=== PATIENT | male | born 2000 | race Caucasian/White ===

== ENCOUNTER 2020-01-18 11:31 | Emergency (ER) | payer OTHER ==
[~2020-01-18] VITALS: Ht 185.4 cm; Wt 67.4 kg
[2020-01-18] MEDS ORDERED: ACETAMINOPHEN 500 MG TAB PO ONE (12:15)
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
[2020-01-18 13:21] VITALS: BP 117/74
== END 2020-01-18 13:23 | disposition home or self-care (01) ==
LOC: M ED 11:31
DX: S09.90XA Unspecified injury of head, initial encounter (principal); S20.319A Abrasion of unspecified front wall of thorax, initial encounter; V49.50XA Passenger injured in collision with unspecified motor vehicles in traffic accident, initial encounter; Y92.410 Unspecified street and highway as the place of occurrence of the external cause

== ENCOUNTER 2020-07-31 01:14 | Inpatient (IN) | payer OTHER ==
[~2020-07-31] VITALS: Ht 184.2 cm; Wt 70.5 kg
[2020-07-31 02:02] LABS: HEMATOCRIT 42.8 % (42.0-52.0); HEMOGLOBIN 14.9 g/dl (13.5-17.5); MEAN CORPUSCULAR HEMOGLOBIN 30.3 pg (27.0-33.0); MEAN CORPUSCULAR HGB CONC 34.8 g/dl (32.0-36.5); MEAN CORPUSCULAR VOLUME 87.2 fl (80.0-96.0); PLATELET COUNT, AUTOMATED 246 10^3/uL (150-450); RED BLOOD COUNT 4.91 10^6/uL (4.30-6.10); WHITE BLOOD COUNT 9.2 10^3/uL (4.0-10.0)
[2020-07-31 02:27] LABS: AMPHETAMINES LEVEL URINE NEGATIVE (NEGATIVE); BARBITURATES URINE NEGATIVE (NEGATIVE); BENZODIAZEPINES URINE NEGATIVE (NEGATIVE); CANNABINOIDS URINE NEGATIVE (NEGATIVE); COCAINE METABOLITE URINE NEGATIVE (NEGATIVE); METHADONE URINE NEGATIVE (NEGATIVE); OPIATES URINE NEGATIVE (NEGATIVE); PHENCYCLIDINE URINE NEGATIVE (NEGATIVE)
[2020-07-31 02:38] LABS: ACETAMINOPHEN LEVEL < 2.0 UG/ML (10.0-30.0); ALBUMIN 4.4 GM/DL (3.2-5.2); ALT/SGPT 27 U/L (12-78); BILIRUBIN,DIRECT < 0.1 MG/DL (0.0-0.2); BILIRUBIN,TOTAL 0.3 MG/DL (0.2-1.0); BLOOD UREA NITROGEN 12 MG/DL (7-18); CALCIUM LEVEL 9.2 MG/DL (8.5-10.1); CARBON DIOXIDE LEVEL 31 MEQ/L (21-32); CHLORIDE LEVEL 105 MEQ/L (98-107); CREATININE FOR GFR 0.85 MG/DL (0.70-1.30); ETHYL ALCOHOL (ETHANOL) < 0.003 % (0.000-0.010); GLOMERULAR FILTRATION RATE > 60.0 (>60); GLUCOSE, FASTING 101 MG/DL (70-100); POTASSIUM SERUM 3.8 MEQ/L (3.5-5.1); SALICYLATE LEVEL < 1.7 MG/DL (5.0-30.0); SODIUM LEVEL 141 MEQ/L (136-145); TOTAL PROTEIN 7.7 GM/DL (6.4-8.2)
[2020-07-31 04:05] LABS: RSV AMPLIFICATION NEGATIVE (NEGATIVE)
[2020-07-31] MEDS ORDERED: PEPT262C2 PO (06:28)
[2020-07-31] MEDS ORDERED: traZODone 50 MG TAB PO PRN (06:30)
[2020-07-31] MEDS ORDERED: LORazepam 1 MG TAB PO PRN (06:30)
[2020-07-31] MEDS ORDERED: MAALOX 30 ML SUSP *UDC PO PRN (06:30)
[2020-07-31] MEDS ORDERED: ACETAMINOPHEN TAB 650MG DOSE (2X325MG) PO PRN (06:30)
[2020-07-31] MEDS ORDERED: MOM 30ML SUSPENSION UDC PO PRN (06:30)
[2020-07-31 10:18] VITALS: BP 119/70
--- NOTE | 2020-07-31 13:45 | HPEPDOC ---
General Date of Admission Jul 31, 2020 at 06:28 Chief Complaint The patient is a 20-year-old male admitted with a reason for visit of Adjustment D/O With Depressive Mood. 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 I am seeing the patient for medical history and physical. Home Medications Scheduled PRN Bismuth Subsalicylate (Pepto-Bismol) 262 Mg Tab.chew, 524 MG PO ASDIRECTED PRN for HEARTBURN/INDIGESTION, (Reported) Allergies Coded Allergies: No Known Allergies (Unverified , 01/18/20) Past Medical History Medical History Depression Family History Maternal Grandmother: stroke Maternal Grandfather: Heart disease, DM Maternal Uncle: DM Mother with stomach problems and sinus problems. Social History * Smoker: current smoker Alcohol: Denies Drugs: denies A-FIB/CHADSVASC A-FIB History Current/History of A-Fib/PAF?: No Review of Systems Constitutional: Denies: Chills, Fever, Night Sweats Eyes: Denies: Pain, Vision change ENT: Denies: Head Aches, Ear Pain, Dysphagia Skin: Denies: Rash, Lesions, Breakdown Pulmonary: Denies: Dyspnea, Cough Cardiovascular: Denies: Chest Pain, Palpitations, Orthopnea, Paroxysmal Noc. Dyspnea, Lt Headedness Gastrointestinal: Denies: Nausea, Vomiting, Abdominal Pain, Diarrhea Genitourinary: Denies: Dysuria, Frequency, Incontinence, Retention Physical Examination General Exam: Positive: Alert, Cooperative, No Acute Distress Eye Exam: Positive: PERRLA, Conjunctiva & lids normal, EOMI; Negative: Sclera icteric ENT Exam: Positive: Atraumatic, Mucous membr. moist/pink, Pharynx Normal Neck Exam: Positive: Supple; Negative: JVD, thyromegaly Heart Exam: Positive: Rate Normal, Regular Rhythm, Normal S1, Normal S2; Negative: Murmurs, Rubs Abdomen Exam: Positive: Normal bowel sounds, Soft; Negative: Tenderness, Hepatospenomegaly Extremity Exam: Negative: Clubbing, Cyanosis, Edema Vital Signs Vital Signs Date Time Temp Pulse Resp B/P (MAP) Pulse Ox O2 Delivery O2 Flow Rate FiO2 07/31/20 10:18 98.7 55 16 119/70 (86) 99 Room Air Laboratory Data Labs 24H Laboratory Tests 2 07/31/20 01:46: Nucleated Red Blood Cells % (auto) 0.0, Anion Gap 5L, Glomerular Filtration Rate > 60.0, Calcium Level 9.2, Total Bilirubin 0.3, Direct Bilirubin < 0.1, Aspartate Amino Transf (AST/SGOT) 14, Alanine Aminotransferase (ALT/SGPT) 27, Alkaline Phosphatase 76, Total Protein 7.7, Albumin 4.4, Albumin/Globulin Ratio 1.3, Thyroid Stimulating Hormone (TSH) 2.340, Salicylates Level < 1.7L, Urine Opiates Screen NEGATIVE, Urine Methadone Screen NEGATIVE, Acetaminophen Level < 2.0L, Urine Barbiturates Screen NEGATIVE, Urine Phencyclidine Screen NEGATIVE, Urine Amphetamines Screen NEGATIVE, Urine Benzodiazepines Screen NEGATIVE, Urine Cocaine Metabolite Screen NEGATIVE, Urine Cannabinoids Screen NEGATIVE, Ethyl Alcohol Level < 0.003 07/31/20 03:15: Coronavirus (COVID-19)(PCR) NEGATIVE, Influenza Type A (RT-PCR) NEGATIVE, Influenza Type B (RT-PCR) NEGATIVE, Respiratory Syncytial Virus (PCR) NEGATIVE CBC/BMP Laboratory Tests 07/31/20 01:46 Assessment/Plan 20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 I am seeing the patient for medical history and physical. Adjustment disorder with depression as per psychiatry No active medical problems at this time. Plan / VTE VTE Prophylaxis Ordered?: No VIOLETTE MALIK MD Jul 31, 2020 12:51
[2020-07-31 16:10] VITALS: BP 122/67
[2020-08-01 06:24] VITALS: BP 119/63
--- NOTE | 2020-08-01 10:40 | MHHPE ---
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 CHIEF COMPLAINT: "I felt depressed and I had suicidal thoughts." HISTORY OF PRESENT ILLNESS: This is his first psychiatric hospitalization. He had a breakup with his fiancee two days ago. They have been together for the last two years. They were engaged about two weeks ago. They had arguments and she told him that she would like to break up with him. He was very upset and wanted to kill himself by cutting his wrists with a knife. He reports that he had thoughts of suicide in the past but never had plans. 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 Other than current breakup, he denies any other stress. PAST PSYCHIATRIC HISTORY: Denies any history of hospitalization or having had any psychotropic medications. Denies any history of suicide attempt. DRUG/ALCOHOL HISTORY: The patient denies. However, socially he drinks once in two weeks. MEDICAL HISTORY: Denies medical problems. FAMILY HISTORY: Brother and mother have a history of depression. PERSONAL HISTORY: He was born and raised in [place]. He completed high school graduation. 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 Denies any history of abuse. MENTAL STATUS EXAMINATION: Thin build. Cooperative. Made good eye contact. Psychomotor activity is normal. Speech, rate, rhythm, volume are good. Denied any auditory and visual hallucinations. Denied any suicidal or homicidal ideas. His memory, immediate, remote, recent, is good. Mood is depressed and anxious. Affect is appropriate for the mood. LABS: CBC within normal limits. CMP within normal limits. Toxicology was negative. REVIEW OF SYSTEMS: Constitutional: Denies fever, night sweats, or weight loss. HEENT: Denies headache, epistaxis or sore throat. Respiratory: Denies shortness of breath or cough. CVS: Denies palpitations or chest pain. GI: Denies any abdominal pain or change in bowel habits. : Denies any hematuria or dysuria. Neuro: Denies any tingling, numbness, dizziness. DIAGNOSIS: Depressive disorder not otherwise specified. Rule out adjustment disorder with depressed mood. PLAN: 1. Admit to [facility]. 2. He will be seen by computing tutor for medical needs. 3. He will be kept on suicide watch. 4. He will be followed up by [employer] [employer]. 5. He will have individual, group, and milieu therapy. MEDICATIONS: The patient does not want to take any antidepressants at this time. He will be kept on observation and then will be discharged. Time spent is about 45 minutes.
[2020-08-01 16:14] VITALS: BP 127/58
[2020-08-02 06:54] VITALS: BP 126/59
--- NOTE | 2020-08-02 13:58 | MHDS ---
[facility] DISCHARGE SUMMARY DATE OF ADMISSION: 07/31/2020 DATE OF DISCHARGE: 08/02/2020 DIAGNOSIS: Depression, unspecified. Rule out adjustment disorder with depressed mood. 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 This is the first psychiatric hospitalization. He had a breakup with his fiancee two days prior to his admission. For details of HPI, past psychiatric history, personal history, substance abuse history, medical history, personal history, please refer to the initial evaluation. COURSE IN THE HOSPITAL: The patient was depressed and feeling sad about the breakup. He reported that they were together for two years. He did not want to take any medications. Later on, he spoke to his girlfriend. They reconciled as he reported that she was supportive of him and if he has any suicidal thoughts or plans, she would bring him back. He never had suicide attempts in the past. He was provided with individual, group, and milieu therapy. The patient was stable at the time of discharge. He was relating well with the staff and peers. There were no behavioral problems. He attended groups. No side effect from any medications. MENTAL STATUS EXAMINATION: He is casually dressed, cooperative, made good eye contact. Psychomotor activity is normal. Speech rate, rhythm and volume are good. Denied any auditory or visual hallucinations. Denied suicidal and homicidal ideas. Insight and judgment are fair to good. VITAL SIGNS: Temperature 98, pulse 65, respirations 20, blood pressure 126/59, pulse oximetry 100. LABS: CBC within normal limits. CMP within normal limits. Toxicology was negative. Plan is to discharge him home. He will be followed up at [facility]. The patient is not on any medication. DIAGNOSIS: Depressive disorder not otherwise specified. Rule out adjustment disorder, depressed mood. MTDD
== END 2020-08-02 11:41 | disposition home or self-care (01) | DRG 881 ==
LOC: M ED 01:14 → M ED INP 06:28 → M PSY 10:15
PROVIDERS: ADMIT Psychiatry & Neurology Psychiatry; ATTEND Psychiatry & Neurology Psychiatry
DX: F43.21 Adjustment disorder with depressed mood (principal); R45.851 Suicidal ideations